=== PATIENT | female | born 1995 | race Caucasian/White ===

== ENCOUNTER 2020-02-05 09:34 | Inpatient (IN) | payer OTHER, MEDICAID ==
[2020-02-05 10:20] LABS: APPEARANCE,URINE CLEAR; BILIRUBIN,URINE NEGATIVE (NEGATIVE); COLOR,URINE YELLOW; GLUCOSE, URINE NEGATIVE (NEGATIVE); KETONES,URINE NEGATIVE (NEGATIVE); LEUKOCYTE ESTERASE,URINE NEGATIVE (NEGATIVE); NITRITE,URINE NEGATIVE (NEGATIVE); PROTEIN,URINE 30 mg/dL (NEGATIVE); URINE SPECIFIC GRAVITY 1.023; UROBILINOGEN,URINE NEGATIVE mg/dL (<2.0)
[2020-02-05] MEDS ORDERED: RINGERS SOLUTION,LACTATED 1,000 ML IV PRN (10:32)
[2020-02-05 10:43] LABS: URINE AMPHETAMINES SCREEN NEGATIVE; URINE BARBITURATES SCREEN NEGATIVE; URINE BENZODIAZEPINES SCREEN NEGATIVE; URINE COCAINE SCREEN NEGATIVE; URINE MARIJUANA (THC) SCREEN NEGATIVE; URINE METHADONE SCREEN NEGATIVE; URINE PHENCYCLIDINE SCREEN NEGATIVE
[2020-02-05 11:11] LABS: ABSOLUTE BASOPHILS # (AUTO) 0.1 10^3/uL (0.0-0.2); ABSOLUTE EOSINOPHILS # (AUTO) 0.1 10^3/uL (0.0-0.6); ABSOLUTE LYMPHOCYTES (AUTO) 1.7 10^3/uL (0.5-4.7); ABSOLUTE MONOCYTES (AUTO) 0.7 10^3/uL (0.1-1.4); ABSOLUTE NEUT (AUTO) 10.6 10^3/uL (1.7-8.2); BASOPHILS % (AUTO) 0.6 % (0-2); EOSINOPHILS % (AUTO) 0.6 % (0-6); HEMATOCRIT 34.7 % (36.0-47.0); HEMOGLOBIN 12.1 g/dL (12.0-15.5); MEAN CORPUSCULAR HEMOGLOBIN 28.1 pg (27.0-33.4); MEAN CORPUSCULAR HGB CONC 34.8 g/dL (32.0-36.0); MEAN CORPUSCULAR VOLUME 81 fl (80-97); MONOCYTES % (AUTO) 5.5 % (3-13); PLATELET COUNT 304 10^3/uL (150-450); RED BLOOD COUNT 4.29 10^6/uL (3.72-5.28); RED CELL DISTRIBUTION WIDTH 14.2 % (11.5-14.0); SEGMENTED NEUTROPHILS % (AUTO) 80.3 % (42-78); TOTAL CELLS COUNTED % (AUTO) 100 %; WHITE BLOOD COUNT 13.2 10^3/uL (4.0-10.5)
[2020-02-05] MEDS ORDERED: LIDOCAINE 1% INJ-PF (10 MG/ML) 30 ML SDV ONE (12:37)
[2020-02-05] MEDS ORDERED: OXYTOCIN 10 UNIT/ML VIAL ONE (12:37)
[2020-02-05] MEDS ORDERED: MISOPROSTOL 0.2 MG TABLET ONE (12:37)
[2020-02-05] MEDS ORDERED: OXYTOCIN/0.9 % SODIUM CHLORIDE 30 UNIT/500 ML RTUINJ ONE (12:37)
[2020-02-05] MEDS ORDERED: OXYTOCIN/0.9 % SODIUM CHLORIDE 30 UNIT/500 ML RTUINJ IV PRN ×2 (12:38→23:24)
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
[2020-02-05] MEDS ORDERED: FENTANYL/BUPIVACAINE/NS/PF 300 MCG/150 ML RTUINJ EPI ONE (17:33)
[2020-02-05] MEDS ORDERED: EPHEDRINE SULFATE INJ 50 MG/1 ML AMPULE ONE (17:33)
[2020-02-05] MEDS ORDERED: ROPIVACAINE HCL 0.2% INJ/PF (2 MG/ML) 20 ML SDV ONE (17:33)
[2020-02-05] MEDS ORDERED: DIPH/PERTUSS(ACELL)/TETANUS VAC/PF 0.5 ML SYR (>=10YO) IM PRN (23:24)
[2020-02-05] MEDS ORDERED: BENZOCAINE/MENTHOL AEROSOL SPRAY 56 ML TOP PRN (23:24)
[2020-02-05] MEDS ORDERED: PROMETHAZINE HCL 25 MG SUPP.RECT PR PRN (23:24)
[2020-02-05] MEDS ORDERED: PROMETHAZINE HCL 25 MG TABLET PO PRN (23:24)
[2020-02-05] MEDS ORDERED: DIPHENHYDRAMINE HCL 25 MG CAPSULE PO PRN (23:24)
[2020-02-05] MEDS ORDERED: NA PHOS,M-B/NA PHOS,DI-BA (ADULT) 133 ML ENEMA PR PRN (23:24)
[2020-02-05] MEDS ORDERED: ZOLPIDEM TARTRATE 5 MG TABLET PO PRN (23:24)
[2020-02-05] MEDS ORDERED: MEASLES,MUMPS&RUBELLA VACC/PF 0.5 ML VIAL SUBCUT PRN (23:24)
[2020-02-05] MEDS ORDERED: MAGNESIUM HYDROXIDE SUSP 30 ML UDCUP PO PRN (23:24)
[2020-02-05] MEDS ORDERED: GLYCERIN/WITCH HAZEL LEAF 1 EACH MED..WIPE TP PRN (23:24)
[2020-02-05] MEDS ORDERED: ACETAMINOPHEN 650 MG SUPP.RECT PR PRN (23:24)
[2020-02-05] MEDS ORDERED: PROMETHAZINE HCL INJ 25 MG/1 ML VIAL IV PRN (23:24)
[2020-02-05] MEDS ORDERED: PSEUDOEPHEDRINE HCL 30 MG TABLET PO PRN (23:24)
[2020-02-05] MEDS ORDERED: DIBUCAINE 1% OINTMENT 28 GM TP PRN (23:24)
[2020-02-05] MEDS ORDERED: ACETAMINOPHEN WITH CODEINE #3 TABLET PO PRN ×2 (23:24)
--- NOTE | 2020-02-06 00:58 | Birth Certificate Data ---
Cert Data Datetime Report Generated by CPN: 02/06/2020 00:57 CERTIFICATE DATA Delivery Provider: Brandno Mckeon MD (02/05/2020 10:09:Eunice Hardwick RN) 47a. Care: Yes (02/05/2020 10:09:Nancy Mora RN) 48a. Number of Prev Live Births: 0 (02/05/2020 10:09:Nancy Mora RN) 48b. Now Livin (02/05/2020 10:09:Nancy Mora RN) 48c. Live Births Now : 0 (02/05/2020 10:09:QS system process) 48e. Losses: 0 (02/05/2020 10:09:Nancy Mora RN) RISK FACTORS IN THIS 49a. Diabetes: Yes (02/05/2020 10:09:Nancy Mora RN) Type of Diabetes: Gestational Diabetes (02/05/2020 10:09:Nancy Mora RN) 49b. Hypertension: No (02/05/2020 10:09:Nancy Mora RN) 49c. Previous Births: 0 (02/05/2020 10:09:Nancy Mora RN) 49d. Stillborns: No (02/05/2020 10:09:Nancy Mora RN) 49d. IUGR: No (02/05/2020 10:09:Nancy Mora RN) 49e. Infertility Treatment: No (02/05/2020 10:09:Nancy Mora RN) 49f. Previous Cesareans: 0 (02/05/2020 10:09:Nancy Mora RN) Mother's Height 50b. Height Inches: 62 (02/05/2020 10:38:QS system process) Mother's Weight 51a. Pre- Weight (lbs): 138 (02/05/2020 10:09:Nancy Mora RN) 51b. Weight at Delivery (lbs): 187 (02/05/2020 10:38:QS system process) 52. Dt Last Normal Menses Began: 05/06/2019 00:00 (02/05/2020 10:09:Nancy Mora RN) Infections Present/Treated 53a. Gonorrhea: No (02/05/2020 10:09:Nancy Mora RN) Results this Hospital Visit : Negative (02/05/2020 10:09:Nancy Mora RN) 53b. Syphilis: No (02/05/2020 10:09:Nancy Mora RN) 53c. Chlamydia: No (02/05/2020 10:09:Nancy Mora RN) Results this Hospital Visit: Negative (02/05/2020 10:09:Nancy Mora RN) 53d. Hepatitis B: No (02/05/2020 10:09:Nancy Mora RN) Results this Hospital Visit: Negative (02/05/2020 10:09:Nancy Mora RN) 53e. Hepatitis C: Negative (02/05/2020 10:09:Nancy Mora RN) 53h. Mother Tested for HBsAG: Yes (02/05/2020 10:09:Nancy Mora RN) 53i. Date Tested: 08/01/2019 00:00 (02/05/2020 10:09:Nancy Mora RN) 53j. Test Result: Negative (02/05/2020 10:09:Nancy Mora RN) Obstetric Procedures 54a, b, c. Obstetric Procedures: Ultrasound; NST (02/05/2020 10:09:Nancy Mora RN) Cigarette Smoking Cigarette Smoking: Never Smoker. [id number] (02/05/2020 10:09:Marta Kruse RN) 55a. 3 Months Before Preg - Ci (02/05/2020 10:09:Marta Kruse RN) 55a. Packs: 0 (02/05/2020 10:09:Marta Kruse RN) 55b. 1st Trimester of Preg- Ci (02/05/2020 10:09:Marta Kruse RN) 55b. Packs: 0 (02/05/2020 10:09:Marta Kruse RN) 55c. 2nd Trimester of Preg- Ci (02/05/2020 10:09:Marta Kruse RN) 55c. Packs: 0 (02/05/2020 10:09:Marta Kruse RN) 55d. 3rd Trimester of Preg- Ci (02/05/2020 10:09:Marta Kruse RN) 55d. Packs: 0 (02/05/2020 10:09:Marta Kruse RN) Onset of Labor 56a. PROM >12 Hrs: 21.05 (02/05/2020 10:09:QS system process) 56b. Precipitous Labor <3 Hrs: 5 (02/05/2020 10:09:QS system process) 56c. Prolonged Labor > 20 Hrs: 5 (02/05/2020 10:09:QS system process) 57a. Induction of Labor: Induction (02/05/2020 10:09:Eunice Hardwick RN) 57c. Non-Vertex Presentation A: Vertex (02/05/2020 10:09:Eunice Hardwick RN) 57d. Steroids - Lung Mat: None (02/05/2020 10:09:Eunice Hardwick RN) 57d. Steroids - Lung Mat: Not Applicable (02/05/2020 10:09:Eunice Hardiwck RN) 57f. Mat [place] or Temp >100.4: 98.3 (02/05/2020 10:09:Eunice Hardwick RN) 57g. Moderate/Heavy Meconium: Clear (02/05/2020 10:09:Eunice Hardwick RN) 57h. Intolerance of Labor: N/A (02/05/2020 10:09:Marta Kruse RN) : N/A (02/05/2020 10:09:Marta Kruse RN) 57i. Epidural/Spinal Anesthesia: Epidural (02/05/2020 10:09:Eunice Hardwick RN) Method of Delivery 58a. Forceps - Unsuccessful A: N/A (02/05/2020 10:09:Eunice Hardwick RN) 58b. Vacuum - Unsuccessful A: N/A (02/05/2020 10:09:Eunice Hardwick RN) 58c. Presentation at 58c. Presentation at - A : Vertex (02/05/2020 10:09:Eunice Hardwick RN) 58c. Presentation at - A : N/A (02/05/2020 10:09:Eunice Hardwick RN) 58c. Presentation at - A : Cephalic (02/05/2020 18:29:Nancy Mora RN) Final Route and Method of Del 58d. Baby A Route/Delivery: Vaginal (02/05/2020 23:03:Marta Kruse RN) 58e. Trial of Labor Attempted: No (02/05/2020 10:09:Eunice Hardwick RN) 58e. Trial of Labor Attempted A: N/A (02/05/2020 10:09:Eunice Hardwick RN) 58e. Trial of Labor Attempted B: N/A (02/05/2020 10:09:Eunice Hardwick RN) Maternal Morbidity 59b. 3rd or 4th Degree Lacs: Vaginal (02/05/2020 10:09:Brandon Mckeon MD ([facility])) Birthweight Baby A: 3872 (02/05/2020 10:09:Jennifer Prather RN) 60a. Pounds : 8 (02/05/2020 10:09:QS system process) 60b. Ounces: 9 (02/05/2020 10:09:QS system process) 61. GA at Delivery Baby A: 39.2 (02/05/2020 10:09:Eunice Hardwick RN) : Full Term- 39- 40.6 Weeks (02/05/2020 10:09:QS system process) 62a. 5 Minute Baby A: 9 (02/05/2020 10:09:QS system process)
--- NOTE | 2020-02-06 00:58 | Delivery Summary ---
Del Sum A-C Datetime Report Generated by CPN: 02/06/2020 00:57 DELIVERY PERSONNEL DELIVERY PERSONNEL: [id number] Delivery Doctor:: Brandon Mckeon MD Labor and Delivery Nurse:: Marta Kruse RNhand tire trimmer Nurse:: Eunice Hardwick RN Dryer Feeder/CORE MICROARCHITECT: Licha Hill, LOGISTICS TEAM LEADER MATERNAL INFORMATION Delivery Anesthesia: Epidural Medications After Delivery: Pitocin Bolus-Please Comment; Pitocin 30 Units in 500ml NS/D5W Estimated Blood Loss (ml): 250 Delivery QBL: 75 Maternal Complications: Premature Rupture of Membranes LABOR SUMMARY EDC: 02/10/2020 00:00 No. Babies in Womb: 1 Attempted: No Labor Anesthesia: Epidural LABOR INFORMATION Reason for Induction: Premature Rupture of Membranes Onset of Labor: 02/05/2020 17:27 Complete Dilatation: 02/05/2020 21:55 Oxytocin: Induction Group B Beta Strep: Negative Antibiotics # of Doses: 0 Name of Antibiotic Given: n/a Steroids Given: None Reason Steroids Not Administered: Not Applicable MEMBRANES Membranes Rupture Method: Spontaneous Rupture of Membranes: 02/05/2020 02:00 Length of Rupture (hr): 21.05 Amniotic Fluid Color: Clear Amniotic Fluid Amount: Moderate Amniotic Fluid Odor: Normal STAGES OF LABOR Stage 1 hr: 4 Stage 1 min: 28 Stage 2 hr: 1 Stage 2 min: 8 Stage 3 hr: 0 Stage 3 min: 13 Total Time in Labor hr: 5 Total Time in Labor min: 49 VAGINAL DELIVERY Episiotomy: None Laceration #1: Vaginal Laceration Extension #1: N/A Laceration #2: Perineal Laceration Extension #2: First Degree Laceration #3: None Laceration Extension #3: N/A Laceration Repair: Yes Laceration Repair Note: right labial laceration repaired with interrupted 3-0 chromic sutures. The perineal laceration was repaired in usual fashion with 3-0 chromic suture. Sponge Count Correct: Vaginal Sweep Performed Sharps Count Correct: Yes CSECTION DELIVERY Primary Indication: N/A Secondary Indication: N/A CSection Incidence: N/A Labor: N/A Elective: N/A CSection Incision: N/A BABY A INFORMATION Infant Delivery Date/Time: 02/05/2020 23:03 Method of Delivery: Vaginal Nurse Controlled Delivery: No Born in Route : No : N/A Forceps: N/A Vacuum Extraction: N/A Shoulder Dystocia : No PRESENTATION/POSITION BABY A Presentation: Cephalic Cephalic Presentation: Vertex Vertex Position: Left Occipital Anterior Breech Presentation: N/A PLACENTA INFORMATION BABY A Placenta Delivery Time : 02/05/2020 23:16 Placenta Method of Delivery: Spontaneous Placenta Status: Delivered SCORES BABY A Heart Rate 1 min: >100 bpm Resp Effort 1 min: Good Cry Reflex Irritability 1 min: Cough or Sneeze or Pulls Away Muscle Tone 1 min: Active Motion Color 1 min: Blue/Pale Resuscitation Effort 1 min: Tactile Stimulation SCORE 1 MIN: 8 Heart Rate 5 min: >100 bpm Resp Effort 5 min: Good Cry Reflex Irritability 5 min: Cough or Sneeze or Pulls Away Muscle Tone 5 min: Active Motion Color 5 min: Body [place], Extremities Blue Resuscitation Effort 5 min: Tactile Stimulation SCORE 5 MIN: 9 INFORMATION BABY A Gestational Age at Delivery: 39.2 Gestational Status: Full Term- 39- 40.6 Weeks Infant Outcome : Liveborn Infant Condition : Stable Sex: Female IDENTIFICATION BABY A Infant Verification Date/Time: 02/06/2020 00:39 ID Band Number: [id number] Mother's Name Verified: Yes RN Verifying : RMarie Billrandeemalou, RN/ EMarie Kruse, RN WEIGHT/LENGTH BABY A Birthweight (gm): 3872 Infant Weight (lb): 8 Infant Weight (oz): 9 Infant Length (in): 20.00 Infant Length (cm): 50.80 CORD INFORMATION BABY A No. Cord Vessels: 3 Nuchal Cord : N/A Cord Blood Taken: Yes-For Storage (Mom's Blood type +) Suction: None ASSESSMENT BABY A Infant Complications: None Physical Findings at Delivery: Within Normal Limits Infant Respirations: Appears Normal Skin to Skin: Yes Porter Baggage/ALS Called : No Care By: R. Mulu, RN Transferred To: Remains with Mother BABY B INFORMATION : N/A SIGNATURES Signature: with User ID: [email or web address]
[2020-02-06] MEDS ORDERED: IBUPROFEN 800 MG TABLET ONE (01:13)
[2020-02-06] MEDS: FAMOTIDINE 20 MG TABLET PO SCH ×3 (02:49→22:47)
[2020-02-06] MEDS ORDERED: IBUPROFEN 800 MG TABLET PO SCH (06:00)
[2020-02-06 08:19] LABS: HEMOGLOBIN 10.4 g/dL (12.0-15.5); MEAN CORPUSCULAR HGB CONC 34.7 g/dL (32.0-36.0); MEAN CORPUSCULAR VOLUME 81 fl (80-97); PLATELET COUNT 287 10^3/uL (150-450); RED BLOOD COUNT 3.71 10^6/uL (3.72-5.28); RED CELL DISTRIBUTION WIDTH 14.1 % (11.5-14.0); WHITE BLOOD COUNT 15.2 10^3/uL (4.0-10.5)
[2020-02-06] MEDS: IBUPROFEN 800 MG TABLET PO SCH ×2 (09:29→17:50)
[2020-02-06] MEDS: PRENATAL VITAMIN W DHA CAPSULE PO SCH (09:29)
[2020-02-06] MEDS: DOCUSATE SODIUM 100 MG CAPSULE PO SCH ×2 (09:29→17:50)
[2020-02-06] MEDS: FERROUS SULFATE 325 MG TABLET PO SCH ×2 (09:29→17:50)
[2020-02-06] MEDS: SENNOSIDES/DOCUSATE 8.6-50 MG 1 EACH TABLET PO SCH (09:29)
--- NOTE | 2020-02-06 10:06 | PDOC PROGRESS REPORT ---
Subjective-OB Progress Note for:: 02/06/20 Subjective: Pt doing well, sore. No complaints of heavy bleeding, reports cramps worse w . Voiding w/o difficulty. Physical Exam (OB) Vital Signs: Temp Pulse Resp BP Pulse Ox 98.2 F 74 18 109/68 97 02/06/20 07:48 02/06/20 07:48 02/06/20 07:48 02/06/20 07:48 02/06/20 07:48 Intake & Output 02/05/20 02/06/20 02/07/20 06:59 06:59 06:59 Intake Total 1000 Balance 1000 Weight 85.3 kg - PIH/Pre-Eclampsia DTR's: 2 + Clonus: Negative Headache: Absent Epigastric Pain: No Visual Changes: No - Maternal Morbidity 59. Maternal Morbidity (serious complications experinced by the mother associ ated with labor and delivery: None of the above - Lochia Lochia Amount: Scant < 10 ml Lochia Color: Rubra/Red - Abdomen Description: Soft, Round Hernia Present: No Fundal Description: Firm, Midline Fundal Height: u/u - u/2 Objective-Diagnostic Laboratory: 02/06/20 07:44 02/05/20 02/05/20 02/05/20 09:55 10:58 10:58 WBC 13.2 H RBC 4.29 Hgb 12.1 Hct 34.7 L MCV 81 MCH 28.1 MCHC 34.8 RDW 14.2 H Plt Count 304 Seg Neutrophils % 80.3 H Urine Color YELLOW Urine Appearance CLEAR Urine pH 5.0 Ur Specific [place] 1.023 Urine Protein 30 H Urine Glucose (UA) NEGATIVE Urine Ketones NEGATIVE Urine Blood SMALL H Urine Nitrite NEGATIVE Ur Leukocyte Esterase NEGATIVE Blood Type A POSITIVE Antibody Screen NEGATIVE 02/06/20 07:44 WBC 15.2 H RBC 3.71 L Hgb 10.4 L Hct 30.0 L MCV 81 MCH 28.0 MCHC 34.7 RDW 14.1 H Plt Count 287 Seg Neutrophils % Urine Color Urine Appearance Urine pH Ur Specific [place] Urine Protein Urine Glucose (UA) Urine Ketones Urine Blood Urine Nitrite Ur Leukocyte Esterase Blood Type Antibody Screen Assessment and Plan(PN) - Assessment and Plan (1) Encounter for induction of labor Is this a current diagnosis for this admission?: Yes (2) GDM (gestational diabetes mellitus), class A1 Is this a current diagnosis for this admission?: Yes (3) Laceration, obstetrical, first degree Is this a current diagnosis for this admission?: Yes (4) PROM (premature rupture of membranes) Qualifiers: PROM onset of labor timing: unspecified duration between rupture of membranes and onset of labor PROM gestational age: full term Qualified Code(s): O42.92 - Full-term premature rupture of membranes, unspecified as to length of time between rupture and onset of labor Is this a current diagnosis for this admission?: Yes (5) (spontaneous vaginal delivery) Is this a current diagnosis for this admission?: Yes (6) Term delivered Is this a current diagnosis for this admission?: Yes - Time Spent with Patient Time with patient: Less than 15 minutes Medications reviewed and adjusted accordingly: Yes - Disposition Anticipated Discharge Disposition: Home, Self Care Anticipated Discharge Timeframe: within 48 hours
[2020-02-07] MEDS: IBUPROFEN 800 MG TABLET PO SCH ×2 (02:50→09:52)
[2020-02-07 08:38] VITALS: BP 126/85
[2020-02-07] MEDS: DOCUSATE SODIUM 100 MG CAPSULE PO SCH (09:51)
[2020-02-07] MEDS: FERROUS SULFATE 325 MG TABLET PO SCH (09:52)
[2020-02-07] MEDS: PRENATAL VITAMIN W DHA CAPSULE PO SCH (09:52)
[2020-02-07] MEDS: SENNOSIDES/DOCUSATE 8.6-50 MG 1 EACH TABLET PO SCH (09:52)
[2020-02-07] MEDS: FAMOTIDINE 20 MG TABLET PO SCH (09:54)
--- NOTE | 2020-02-07 11:33 | PDOC DISCHARGE SUMMARY ---
Impression - Admit/DC Date/PCP Admission Date/Primary Care Provider: 02/05/20 10:36 LORIE DEL REAL MD Discharge Date: 02/07/20 - Discharge Diagnosis (1) Encounter for induction of labor Is this a current diagnosis for this admission?: Yes (2) GDM (gestational diabetes mellitus), class A1 Is this a current diagnosis for this admission?: Yes (3) Laceration, obstetrical, first degree Is this a current diagnosis for this admission?: Yes (4) PROM (premature rupture of membranes) Is this a current diagnosis for this admission?: Yes (5) (spontaneous vaginal delivery) Is this a current diagnosis for this admission?: Yes (6) Term delivered Is this a current diagnosis for this admission?: Yes - Additional Information Resuscitation Status: Full Code Discharge Diet: Regular Discharge Activity: Balance Activity w/Rest, Pelvic Rest Referrals: LORIE DEL REAL MD [Primary Care Provider] - Prescriptions: Ibuprofen [Motrin 800 mg Tablet] 800 mg PO Q8HP PRN #60 tablet PRN Reason: Home Medications: Vitamin [-U Multiple Vitamin Capsule] 1 cap PO DAILY 02/05/20 Ibuprofen [Motrin 800 mg Tablet] 800 mg PO Q8HP PRN #60 tablet 02/07/20 HPI Gestational Age: 39.2 Reason(s) for Admission: Onset of Labor Procedures: NST Intrapartum Procedure(s): Spontaneous Vaginal Delivery Complication(s): Laceration-Labial Laceration-Degree: 1st Hospital Course 59. Maternal Morbidity (serious complications experinced by the mother associated with labor and delivery: None of the above Results Laboratory Results: WBC 15.2 10^3/uL (4.0-10.5) H 02/06/20 07:44 RBC 3.71 10^6/uL (3.72-5.28) L 02/06/20 07:44 Hgb 10.4 g/dL (12.0-15.5) L 02/06/20 07:44 Hct 30.0 % (36.0-47.0) L 02/06/20 07:44 MCV 81 fl (80-97) 02/06/20 07:44 MCH 28.0 pg (27.0-33.4) 02/06/20 07:44 MCHC 34.7 g/dL (32.0-36.0) 02/06/20 07:44 RDW 14.1 % (11.5-14.0) H 02/06/20 07:44 Plt Count 287 10^3/uL (150-450) 02/06/20 07:44 Lymph % (Auto) 13.0 % (13-45) 02/05/20 10:58 [place] % (Auto) 5.5 % (3-13) 02/05/20 10:58 Eos % (Auto) 0.6 % (0-6) 02/05/20 10:58 Baso % (Auto) 0.6 % (0-2) 02/05/20 10:58 Absolute Neuts (auto) 10.6 10^3/uL (1.7-8.2) H 02/05/20 10:58 Absolute Lymphs (auto) 1.7 10^3/uL (0.5-4.7) 02/05/20 10:58 Absolute Monos (auto) 0.7 10^3/uL (0.1-1.4) 02/05/20 10:58 Absolute Eos (auto) 0.1 10^3/uL (0.0-0.6) 02/05/20 10:58 Absolute Basos (auto) 0.1 10^3/uL (0.0-0.2) 02/05/20 10:58 Seg Neutrophils % 80.3 % (42-78) H 02/05/20 10:58 Urine Color YELLOW 02/05/20 09:55 Urine Appearance CLEAR 02/05/20 09:55 Urine pH 5.0 (5.0-9.0) 02/05/20 09:55 Ur Specific [place] 1.023 02/05/20 09:55 Urine Protein 30 mg/dL (NEGATIVE) H 02/05/20 09:55 Urine Glucose (UA) NEGATIVE mg/dL (NEGATIVE) 02/05/20 09:55 Urine Ketones NEGATIVE mg/dL (NEGATIVE) 02/05/20 09:55 Urine Blood SMALL (NEGATIVE) H 02/05/20 09:55 Urine Nitrite NEGATIVE (NEGATIVE) 02/05/20 09:55 Urine Bilirubin NEGATIVE (NEGATIVE) 02/05/20 09:55 Urine Urobilinogen NEGATIVE mg/dL (<2.0) 02/05/20 09:55 Ur Leukocyte Esterase NEGATIVE (NEGATIVE) 02/05/20 09:55 Urine Ascorbic Acid NEGATIVE (NEGATIVE) 02/05/20 09:55 Membranes Rupture POSITIVE (NEGATIVE) H 02/05/20 09:55 Urine Opiates Screen NEGATIVE 02/05/20 09:55 Urine Methadone Screen NEGATIVE 02/05/20 09:55 Ur Barbiturates Screen NEGATIVE 02/05/20 09:55 Ur Phencyclidine Scrn NEGATIVE 02/05/20 09:55 Ur Amphetamines Screen NEGATIVE 02/05/20 09:55 U Benzodiazepines Scrn NEGATIVE 02/05/20 09:55 Urine Cocaine Screen NEGATIVE 02/05/20 09:55 U Marijuana (THC) Screen NEGATIVE 02/05/20 09:55 RPR NONREACTIVE (NONREACTIVE) 02/05/20 10:58 Blood Type A POSITIVE 02/05/20 10:58 Antibody Screen NEGATIVE 02/05/20 10:58 Plan Plan of Treatment: f/u at [facility] 4 wks Time Spent: Less than 30 Minutes
== END 2020-02-07 14:35 | disposition home or self-care (01) | DRG 807 ==
LOC: LC 09:34 → LR 10:36 → 2S 02-06 01:20
PROVIDERS: ADMIT Obstetrics & Gynecology; ATTEND Obstetrics & Gynecology
PROC: 10E0XZZ Delivery of Products of Conception, External Approach (ICD-10-PCS; principal; 2020-02-05)
PROC: 0HQ9XZZ Repair Perineum Skin, External Approach (ICD-10-PCS; 2020-02-05)
DX: O24.420 Gestational diabetes mellitus in childbirth, diet controlled (principal); Z37.0 Single live birth; O70.0 First degree perineal laceration during delivery; O42.90 Premature rupture of membranes, unspecified as to length of time between rupture and onset of labor, unspecified weeks of gestation; Z3A.39 39 weeks gestation of pregnancy; Z88.1 Allergy status to other antibiotic agents
CPT/HCPCS: 1967; 36415; 80307; 81005; 84112; 85025; 85027; 86592; 86850; 86900; 86901; J2590; J2795; J3010; J3490